=== PATIENT | male | born 1965 | race Caucasian/White ===

== ENCOUNTER → 2024-09-04 | Outpatient (CLI) | payer OTHER ==
[~2024-09-04] MED LIST: ACETAMINOPHEN 325 MG TAB PO PRN; DIGO0.253 PO; ELIQ5TAB; ISOVUE-300 61% 100ML VIAL As Ordered ONE; LIDOCAINE 1% MDV 20ML VIAL As Ordered ONE; LISI40TA4; METO1TAB7; MIDAZOLAM INJ 2MG/2ML VIAL As Ordered ONE; NOXI1TAB PO; NS (Normal Saline) 0.9% 1,000 ML IV SCH; PERCOCET 5MG/325MG TAB PO PRN; ROSU10TA61; SPIR-10; fentaNYL 100 MCG/2 ML INJECTION As Ordered ONE
[2024-09-04 08:16] VITALS: TEMP 98.6
[2024-09-04] MEDS: LIDOCAINE 1% MDV 20ML VIAL SC ONE (09:44)
[2024-09-04] MEDS: MIDAZOLAM INJ 2MG/2ML VIAL IV PRN (09:46)
[2024-09-04] MEDS: fentaNYL 100 MCG/2 ML INJECTION IV PRN (09:46)
[2024-09-04] MEDS: ISOVUE-300 61% 100ML VIAL IV ONE (10:00)
[2024-09-04 10:15] VITALS: BP 179/97; O2SAT 100
== END ==
LOC: M IRPRO 07:43
PROVIDERS: ATTEND Internal Medicine Medical Oncology
DX: C25.2 Malignant neoplasm of tail of pancreas (principal); E83.110 Hereditary hemochromatosis
CPT/HCPCS: 48102; 77012; 88305; 99152; 99153; J2250; J3010; Q9967

== ENCOUNTER → 2024-10-06 | Outpatient (CLI) | payer OTHER ==
[~2024-10-06] MED LIST changes: -ACETAMINOPHEN 325 MG TAB PO PRN; -ISOVUE-300 61% 100ML VIAL As Ordered ONE; -LIDOCAINE 1% MDV 20ML VIAL As Ordered ONE; -MIDAZOLAM INJ 2MG/2ML VIAL As Ordered ONE; -NS (Normal Saline) 0.9% 1,000 ML IV SCH; -PERCOCET 5MG/325MG TAB PO PRN; -fentaNYL 100 MCG/2 ML INJECTION As Ordered ONE
== END ==
LOC: M PLARAD 08:49
PROVIDERS: ATTEND Internal Medicine Medical Oncology
DX: C25.9 Malignant neoplasm of pancreas, unspecified (principal)
CPT/HCPCS: 78815; A9552

== ENCOUNTER → 2024-10-15 | Outpatient (CLI) | payer OTHER ==
[~2024-10-15] MED LIST changes: +DULO30CA9 PO; +OXYC-517 PO
== END ==
LOC: M WHC 11:36
PROVIDERS: ATTEND Internal Medicine Medical Oncology
DX: N50.812 Left testicular pain (principal); I86.1 Scrotal varices; N43.3 Hydrocele, unspecified; N50.3 Cyst of epididymis

== ENCOUNTER → 2024-10-15 | Outpatient (CLI) | payer OTHER ==
[~2024-10-15] VITALS: Ht 177.8 cm; Wt 91.9 kg
[2024-10-15 11:09] VITALS: BP 170/103; O2SAT 99
== END ==
LOC: M PAL 10:28
PROVIDERS: ATTEND Physician Assistant
DX: Z51.5 Encounter for palliative care (principal); C25.9 Malignant neoplasm of pancreas, unspecified; R11.0 Nausea; R52 Pain, unspecified; Z79.1 Long term (current) use of non-steroidal anti-inflammatories (NSAID); Z79.01 Long term (current) use of anticoagulants; Z79.899 Other long term (current) drug therapy

== ENCOUNTER → 2024-10-19 | Outpatient (CLI) | payer OTHER ==
[~2024-10-19] VITALS: Ht 177.8 cm; Wt 88.8 kg
[2024-10-19 12:16] VITALS: BP 142/79; O2SAT 98
== END ==
LOC: M PAL 11:23
PROVIDERS: ATTEND Physician Assistant
DX: Z51.5 Encounter for palliative care (principal); C61 Malignant neoplasm of prostate; R52 Pain, unspecified; R11.0 Nausea; Z66 Do not resuscitate; Z79.01 Long term (current) use of anticoagulants; Z79.891 Long term (current) use of opiate analgesic; Z79.899 Other long term (current) drug therapy

== ENCOUNTER → 2024-10-26 | Outpatient (CLI) | payer OTHER ==
[~2024-10-26] MED LIST changes: +ONDA-282 PO; +PROHANCE 279.3MG/ML 15ML VIAL ONE; +PROHANCE 279.3MG/ML 5ML VIAL ONE
== END ==
LOC: M PLAIMG 14:40
PROVIDERS: ATTEND Internal Medicine Medical Oncology
DX: D75.839 Thrombocytosis, unspecified (principal); R93.7 Abnormal findings on diagnostic imaging of other parts of musculoskeletal system
CPT/HCPCS: 73220; A9576

== ENCOUNTER → 2024-10-28 | Outpatient (CLI) | payer OTHER ==
[~2024-10-28] MED LIST changes: +MORP1SOL5 PO; -PROHANCE 279.3MG/ML 15ML VIAL ONE; -PROHANCE 279.3MG/ML 5ML VIAL ONE; +SENN1TAB85 PO
== END ==
LOC: M IRPRO 09:17
PROVIDERS: ATTEND Internal Medicine Medical Oncology
DX: C25.9 Malignant neoplasm of pancreas, unspecified (principal)
CPT/HCPCS: 36569; 71045; C1751

== ENCOUNTER → 2024-10-30 | Outpatient (REF) | LOC: M LABCFH 10:04 | DX: K57.92 Diverticulitis of intestine, part unspecified, without perforation or abscess without bleeding (principal) ==

== ENCOUNTER → 2024-10-30 | Outpatient (CLI) | payer OTHER | LOC: M PAL 13:00 | PROVIDERS: ATTEND Family Medicine | DX: Z51.5 Encounter for palliative care (principal); Z66 Do not resuscitate; C25.9 Malignant neoplasm of pancreas, unspecified; C40.00 Malignant neoplasm of scapula and long bones of unspecified upper limb; K57.92 Diverticulitis of intestine, part unspecified, without perforation or abscess without bleeding; N17.9 Acute kidney failure, unspecified; Z79.891 Long term (current) use of opiate analgesic; Z79.899 Other long term (current) drug therapy ==

== ENCOUNTER 2024-11-09 07:26 | Inpatient (IN) | payer OTHER ==
[~2024-11-09] VITALS: Ht 177.8 cm; Wt 92.5 kg
[~2024-11-09 07:26] MED LIST changes: -CIPR-249 PO; -CIPR500S PO; -DOCU8.6T PO; -LIDOCAINE 1% MDV 20ML VIAL SC SCH; -METO1TAB33 PO; -METR-265 PO; -MIDAZOLAM INJ 2MG/2ML VIAL IV PRN; -NS (Normal Saline) 0.9% 1,000 ML IV SCH; -ROSU20TA86 PO; -ceFAZolin SODIUM 2 GM in DEXTROSE 5% (D5W) ADV/MINI-BAG 50 ML IV ONE; -fentaNYL 100 MCG/2 ML INJECTION IV PRN
[2024-11-09] MEDS ORDERED: NOREPINEPHRINE 4MG IN D5 250ML 4 MG in IV 1 EA IV SCH (07:35)
[2024-11-09 08:06] LABS: BASO % 0.3 % (0.0-1.0); EOS # 0.1 10^3/uL (0.0-0.5); EOS % 0.8 % (0.0-3.0); HEMATOCRIT 40.7 % (42.0-52.0); LYMPH # 0.8 10^3/uL (1.5-5.0); MEAN CORPUSCULAR HEMOGLOBIN 29.4 pg (27.0-33.0); MEAN CORPUSCULAR HGB CONC 34.4 g/dl (32.0-36.5); MEAN CORPUSCULAR VOLUME 85.3 fl (80.0-96.0); MONO # 1.5 10^3/uL (0.0-0.8); MONO % 10.9 % (2.0-8.0); NEUTROPHILS # 11.4 10^3/uL (1.5-8.5); PLATELET COUNT, AUTOMATED 433 10^3/uL (150-450); RED BLOOD COUNT 4.77 10^6/uL (4.30-6.10)
[2024-11-09 08:23] LABS: INR 1.55; PARTIAL THROMBOPLASTIN TIME 36.5 SECONDS (24.8-34.2); PROTHROMBIN TIME 18.9 SECONDS (12.5-14.5)
[2024-11-09] MEDS: NS 0.9% IV ONE (08:23)
[2024-11-09] MEDS: [UNRECOGNIZED DRUG - OTHER] IV ONE (08:23)
[2024-11-09] MEDS: fentaNYL 100 MCG/2 ML INJECTION IV PRN (08:24)
[2024-11-09] MEDS: PIPERACILLIN/TAZOBACTAM SOD 4.5 GM in DEXTROSE 5% (D5W) ADV/MINI-BAG 50 ML IV ONE (08:24)
[2024-11-09] MEDS: LIDOCAINE 2% 5ML JELLY UROJET TOP ONE ×2 (08:25)
[2024-11-09 08:27] LABS: CK-MB VALUE MASS 1.3 NG/ML (<3.6)
[2024-11-09 08:28] LABS: APPEARANCE, URINE CLOUDY (CLEAR); BACTERIA, URINE AUTO NEGATIVE (NEGATIVE); BILIRUBIN, URINE AUTO 1+ (NEGATIVE); BLOOD, URINE BLOOD NEGATIVE (NEGATIVE); COLOR, URINE AMBER (YELLOW); GLUCOSE, URINE (UA) AUTO NEGATIVE (NEGATIVE); KETONE, URINE AUTO NEGATIVE (NEGATIVE); LEUKOCYTE ESTERASE, URINE AUTO 1+ (NEGATIVE); MUCUS, URINE SMALL (NEGATIVE); NITRITE, URINE AUTO NEGATIVE (NEGATIVE); PROTEIN, URINE AUTO 2+ mg/dL (NEGATIVE); RBC, URINE AUTO 4 /HPF (0-3); SPECIFIC GRAVITY URINE AUTO 1.019 (1.002-1.035); SQUAMOUS EPITHELIAL CELL UR AU 2 /HPF (0-6); WBC, URINE AUTO 29 /HPF (0-3)
[2024-11-09 08:29] LABS: MB/CK RELATIVE INDEX 1.25 (< OR =4)
[2024-11-09 08:33] LABS: DIGOXIN LEVEL 1.5 NG/ML (0.8-2.0)
[2024-11-09 08:53] LABS: PROCALCITONIN 1.08 ng/ml
[2024-11-09 08:55] LABS: ALBUMIN 3.1 G/DL (3.2-5.2); BILIRUBIN,DIRECT 0.1 MG/DL (<0.4); BILIRUBIN,TOTAL 0.3 MG/DL (0.3-1.2); C REACTIVE PROTEIN QUANTITATIV 17.85 MG/DL (<1.0); CALCIUM LEVEL 8.7 MG/DL (8.3-10.6); CREATININE FOR GFR 4.52 MG/DL (0.70-1.30); GLOMERULAR FILTRATION RATE 14.1 (>49); POTASSIUM SERUM 5.3 MMOL/L (3.5-5.1); TOTAL PROTEIN 6.3 G/DL (5.7-8.2)
[2024-11-09 09:05] LABS: ABG BASE EXCESS -9.6 (-2.0-2.0); ABG HCO3 14.2 MMOL/L (22.0-26.0); ABG O2 SATURATION 98.4 % (95.0-99.0); ABG PARTIAL PRESSURE CO2 26.1 mmHg (35.0-45.0); ABG PARTIAL PRESSURE O2 144.9 mmHg (75.0-100.0); ABG STANDARD HCO3 16.9 MMOL/L. (22.0-26.0); ABG pH (ARTERIAL) 7.352 UNITS (7.350-7.450)
[2024-11-09 09:27] LABS: FREE T4 1.29 NG/DL (0.89-1.76); THYROID STIMULATING HORMONE 12.207 uIU/ML (0.55-4.78)
[2024-11-09] MEDS: ONDANSETRON 4MG 2ML VIAL IV ONE (09:38)
[2024-11-09 09:55] LABS: CK-MB VALUE MASS 1.1 NG/ML (<3.6)
[2024-11-09 09:55] LABS: CREATININE,RANDOM URINE 302.2 MG/DL
[2024-11-09 09:57] LABS: MB/CK RELATIVE INDEX 1.32 (< OR =4)
[2024-11-09] MEDS ORDERED: DOCU8.6T PO (10:22)
[2024-11-09] MEDS ORDERED: METO1TAB33 PO (10:22)
[2024-11-09] MEDS ORDERED: ONDA-282 PO (10:22)
[2024-11-09] MEDS ORDERED: ROSU20TA86 PO (10:22)
[2024-11-09] MEDS ORDERED: CIPR500S PO (10:24)
[2024-11-09] MEDS ORDERED: CIPR-249 PO (10:24)
[2024-11-09] MEDS ORDERED: METR-265 PO (10:25)
[2024-11-09] MEDS ORDERED: HOME MED LIST COMPLETE! XX SCH (10:30)
[2024-11-09] MEDS: NS (Normal Saline) 0.9% 1,000 ML IV ONE (10:36)
[2024-11-09] MEDS: fentaNYL 100 MCG/2 ML INJECTION IV ONE (11:32)
[2024-11-09 15:11] VITALS: BP 102/60; TEMP 98.3; O2SAT 94; O2SAT 95
[2024-11-09 16:18] LABS: CALCIUM LEVEL 7.8 MG/DL (8.3-10.6); CREATININE FOR GFR 3.97 MG/DL (0.70-1.30); GLOMERULAR FILTRATION RATE 16.5 (>49); POTASSIUM SERUM 5.4 MMOL/L (3.5-5.1)
[2024-11-09 17:38] LABS: APPEARANCE, BODY FLUID CLOUDY (CLEAR); ASCITES FL COLOR AMBER (COLORLESS); SOURCE, BODY FLUID ASCITES
[2024-11-09] MEDS: SODIUM BICARBONATE 150 MEQ in D5W 1,000 ML IV SCH (17:45)
[2024-11-09 18:42] LABS: SOURCE, BODY FLUID ALBUMIN ASCITES
[2024-11-09 18:47] LABS: SOURCE, BODY FLUID GLUCOSE ASCITES; SOURCE, BODY FLUID TOT PROTEIN ASCITES; TOTAL PROTEIN, BODY FLUID 4.3 G/DL (NOT ESTABLISHED)
[2024-11-09 19:53] VITALS: BP 106/62; TEMP 97.6; O2SAT 100
[2024-11-09] MEDS: PIPERACILLIN/TAZOBACTAM SOD 4.5 GM in DEXTROSE 5% (D5W) ADV/MINI-BAG 50 ML IV SCH (20:34)
[2024-11-09] MEDS: SENOKOT S TAB PO SCH (20:34)
[2024-11-09] MEDS: APIXABAN 5 MG TAB PO SCH (20:35)
[2024-11-09] MEDS: HYDROMORPHONE HCL 0.5 MG/ 0.5 ML SYRINGE IV PRN (20:37)
[2024-11-09 21:51] LABS: CALCIUM LEVEL 7.8 MG/DL (8.3-10.6); CREATININE FOR GFR 3.69 MG/DL (0.70-1.30); POTASSIUM SERUM 5.3 MMOL/L (3.5-5.1)
[2024-11-09 23:43] VITALS: BP 106/56; TEMP 97.5; O2SAT 100
[2024-11-10] VITALS (8 sets, daily range): BP systolic 80–103; BP diastolic 60–73; TEMP 96.8–97.9; O2SAT 95–99
[2024-11-10 06:29] LABS: ALBUMIN 2.2 G/DL (3.2-5.2); BILIRUBIN,TOTAL 0.2 MG/DL (0.3-1.2); CALCIUM LEVEL 7.8 MG/DL (8.3-10.6); CREATININE FOR GFR 3.46 MG/DL (0.70-1.30); GLOMERULAR FILTRATION RATE 19.4 (>49); POTASSIUM SERUM 4.5 MMOL/L (3.5-5.1); TOTAL PROTEIN 4.8 G/DL (5.7-8.2)
[2024-11-10] MEDS: ROSUVASTATIN 10 MG TAB PO SCH (08:22)
[2024-11-10] MEDS: HYDROMORPHONE HCL 0.5 MG/ 0.5 ML SYRINGE IV PRN (08:32)
[2024-11-10] MEDS: ONDANSETRON 4MG 2ML VIAL IV PRN (08:44)
[2024-11-10] MEDS ORDERED: AMIODARONE HCL 150 MG in IV 1 EA IV SCH (16:15)
[2024-11-10] MEDS ORDERED: AMIODARONE HCL 360 MG in IV 1 EA IV SCH (16:15)
[2024-11-10] MEDS: AMIODARONE 200 MG TAB PO SCH (17:15)
[2024-11-10 17:31] LABS: CALCIUM LEVEL 7.8 MG/DL (8.3-10.6); CREATININE FOR GFR 2.93 MG/DL (0.70-1.30); GLOMERULAR FILTRATION RATE 23.7 (>49); MAGNESIUM LEVEL 1.9 MG/DL (1.8-2.4); POTASSIUM SERUM 4.2 MMOL/L (3.5-5.1)
[2024-11-10] MEDS: MAG SULF 1GM/100ML (MAG RUN) 1 GM in IV 1 EA IV ONE (18:36)
[2024-11-10] MEDS ORDERED: AMIODARONE 200 MG TAB PO SCH (21:00)
[2024-11-11] VITALS (9 sets, daily range): BP systolic 94–114; BP diastolic 59–74; PULSE 87; TEMP 96.9–97.7; O2SAT 96–97
[2024-11-11 05:41] LABS: BASO % 0.3 % (0.0-1.0); EOS # 0.1 10^3/uL (0.0-0.5); EOS % 1.1 % (0.0-3.0); HEMATOCRIT 39.8 % (42.0-52.0); HEMOGLOBIN 13.6 g/dl (13.5-17.5); LYMPH # 0.8 10^3/uL (1.5-5.0); LYMPH % 6.5 % (24.0-44.0); MEAN CORPUSCULAR HEMOGLOBIN 28.3 pg (27.0-33.0); MEAN CORPUSCULAR HGB CONC 34.2 g/dl (32.0-36.5); MEAN CORPUSCULAR VOLUME 82.7 fl (80.0-96.0); MONO # 1.4 10^3/uL (0.0-0.8); MONO % 11.8 % (2.0-8.0); NEUTROPHILS # 9.5 10^3/uL (1.5-8.5); NEUTROPHILS % 79.7 % (36.0-66.0); PLATELET COUNT, AUTOMATED 386 10^3/uL (150-450); RED BLOOD COUNT 4.81 10^6/uL (4.30-6.10); WHITE BLOOD COUNT 11.9 10^3/uL (4.0-10.0)
[2024-11-11 06:10] LABS: CALCIUM LEVEL 7.8 MG/DL (8.3-10.6); CREATININE FOR GFR 2.64 MG/DL (0.70-1.30); GLOMERULAR FILTRATION RATE 26.9 (>49); POTASSIUM SERUM 4.5 MMOL/L (3.5-5.1)
[2024-11-11] MEDS ORDERED: DOCUSATE SODIUM 100MG CAPSULE PO PRN (07:05)
[2024-11-11] MEDS: MIRALAX *UNIT DOSE* 17GM PACKET PO PRN (08:44)
[2024-11-11] MEDS ORDERED: SIMETHICONE 80MG CHEW TAB PO PRN (09:10)
[2024-11-11] MEDS: NS (Normal Saline) 0.9% 1,000 ML IV SCH (09:41)
[2024-11-11 12:06] LABS: PROCALCITONIN 0.61 ng/ml
[2024-11-11] MEDS: PIPERACILLIN/TAZOBACTAM SOD 4.5 GM in DEXTROSE 5% (D5W) ADV/MINI-BAG 50 ML IV SCH (16:38)
[2024-11-11] MEDS ORDERED: guaiFENesin SYRUP 200MG 10ML UDC PO PRN (21:25)
[2024-11-11] MEDS ORDERED: methocarbamoL 750 MG TAB PO ONE (21:25)
[2024-11-11] MEDS: ALPRAZolam 0.5 MG TAB PO ONE (23:11)
[2024-11-12 04:23] VITALS: BP 98/65; TEMP 97.5; O2SAT 96
[2024-11-12 05:26] LABS: BASO % 0.3 % (0.0-1.0); EOS # 0.1 10^3/uL (0.0-0.5); EOS % 1.3 % (0.0-3.0); HEMATOCRIT 38.9 % (42.0-52.0); HEMOGLOBIN 13.1 g/dl (13.5-17.5); LYMPH # 0.9 10^3/uL (1.5-5.0); LYMPH % 9.2 % (24.0-44.0); MEAN CORPUSCULAR HEMOGLOBIN 28.2 pg (27.0-33.0); MEAN CORPUSCULAR HGB CONC 33.7 g/dl (32.0-36.5); MEAN CORPUSCULAR VOLUME 83.8 fl (80.0-96.0); MONO # 1.4 10^3/uL (0.0-0.8); MONO % 14.7 % (2.0-8.0); NEUTROPHILS % 73.8 % (36.0-66.0); PLATELET COUNT, AUTOMATED 336 10^3/uL (150-450); RED BLOOD COUNT 4.64 10^6/uL (4.30-6.10); WHITE BLOOD COUNT 9.5 10^3/uL (4.0-10.0)
[2024-11-12 05:46] LABS: CALCIUM LEVEL 7.9 MG/DL (8.3-10.6); CREATININE FOR GFR 2.5 MG/DL (0.70-1.30); GLOMERULAR FILTRATION RATE 28.7 (>49); PHOSPHORUS LEVEL 4.2 MG/DL (2.4-5.1); POTASSIUM SERUM 4.3 MMOL/L (3.5-5.1)
[2024-11-12 08:00] VITALS: BP 99/64; TEMP 98.1; O2SAT 97
[2024-11-12 12:00] VITALS: BP 103/66; TEMP 97.6; O2SAT 96
[2024-11-12 16:00] VITALS: BP 109/77; TEMP 97.9; O2SAT 95
[2024-11-12 20:18] VITALS: BP 110/76; TEMP 98.2; O2SAT 97
[2024-11-12] MEDS: ALPRAZolam 0.5 MG TAB PO SCH (20:18)
[2024-11-13] VITALS (12 sets, daily range): BP systolic 114–140; BP diastolic 68–88; PULSE 100–140; TEMP 97.1–98.4; O2SAT 94–98
[2024-11-13 05:33] LABS: BASO % 0.3 % (0.0-1.0); EOS # 0.1 10^3/uL (0.0-0.5); EOS % 1.1 % (0.0-3.0); HEMATOCRIT 36.7 % (42.0-52.0); HEMOGLOBIN 12.3 g/dl (13.5-17.5); LYMPH # 0.7 10^3/uL (1.5-5.0); LYMPH % 6.5 % (24.0-44.0); MEAN CORPUSCULAR HGB CONC 33.5 g/dl (32.0-36.5); MEAN CORPUSCULAR VOLUME 86.6 fl (80.0-96.0); MONO # 1.4 10^3/uL (0.0-0.8); MONO % 14.3 % (2.0-8.0); NEUTROPHILS # 7.8 10^3/uL (1.5-8.5); PLATELET COUNT, AUTOMATED 322 10^3/uL (150-450); RED BLOOD COUNT 4.24 10^6/uL (4.30-6.10); WHITE BLOOD COUNT 10.1 10^3/uL (4.0-10.0)
[2024-11-13 05:55] LABS: CALCIUM LEVEL 7.8 MG/DL (8.3-10.6); CREATININE FOR GFR 2.34 MG/DL (0.70-1.30); GLOMERULAR FILTRATION RATE 31.1 (>49); MAGNESIUM LEVEL 1.8 MG/DL (1.8-2.4); PHOSPHORUS LEVEL 3.5 MG/DL (2.4-5.1); POTASSIUM SERUM 4.1 MMOL/L (3.5-5.1)
[2024-11-13] MEDS: AMIODARONE HCL 150 MG in IV 1 EA IV ONE (09:59)
[2024-11-13] MEDS: AMIODARONE HCL 360 MG in IV 1 EA IV SCH (18:57)
[2024-11-14] VITALS (9 sets, daily range): BP systolic 121–158; BP diastolic 77–94; PULSE 94; TEMP 96.8–98.1; O2SAT 95–100
[2024-11-14 05:00] LABS: CALCIUM LEVEL 7.8 MG/DL (8.3-10.6); CREATININE FOR GFR 2.27 MG/DL (0.70-1.30); GLOMERULAR FILTRATION RATE 32.2 (>49); MAGNESIUM LEVEL 1.8 MG/DL (1.8-2.4); PHOSPHORUS LEVEL 3.5 MG/DL (2.4-5.1); POTASSIUM SERUM 4.2 MMOL/L (3.5-5.1)
[2024-11-15 04:07] VITALS: BP 128/98; TEMP 98.5; O2SAT 94
[2024-11-15 06:34] LABS: CALCIUM LEVEL 7.7 MG/DL (8.3-10.6); CREATININE FOR GFR 1.81 MG/DL (0.70-1.30); GLOMERULAR FILTRATION RATE 42.3 (>49); MAGNESIUM LEVEL 1.6 MG/DL (1.8-2.4); PHOSPHORUS LEVEL 3.3 MG/DL (2.4-5.1); POTASSIUM SERUM 4.1 MMOL/L (3.5-5.1)
[2024-11-15 07:50] VITALS: BP 124/92; TEMP 97.9; O2SAT 94
[2024-11-15 12:00] VITALS: BP 146/90; TEMP 97.3; O2SAT 95
[2024-11-15 16:57] VITALS: BP 158/98; TEMP 97.7; O2SAT 97
[2024-11-15 21:08] VITALS: BP 138/89; TEMP 97.2; O2SAT 99
[2024-11-16 04:44] LABS: HEMATOCRIT 38.8 % (42.0-52.0); HEMOGLOBIN 12.5 g/dl (13.5-17.5)
[2024-11-16 05:11] VITALS: BP 131/73; TEMP 98.2; O2SAT 96
[2024-11-16 07:17] LABS: CALCIUM LEVEL 8.2 MG/DL (8.3-10.6); CREATININE FOR GFR 1.71 MG/DL (0.70-1.30); GLOMERULAR FILTRATION RATE 45.3 (>49); MAGNESIUM LEVEL 1.6 MG/DL (1.8-2.4); POTASSIUM SERUM 4.3 MMOL/L (3.5-5.1)
[2024-11-16 07:48] VITALS: BP 149/85; TEMP 97.2; O2SAT 97
[2024-11-16] MEDS ORDERED: ACETAMINOPHEN 650MG SUPP PR PRN (10:45)
[2024-11-16] MEDS ORDERED: LORazepam 1 MG TAB PO PRN (10:45)
[2024-11-16] MEDS ORDERED: BISACODYL 10MG SUPP PR PRN (10:45)
[2024-11-16] MEDS ORDERED: SCOPOLAMINE 1MG TRANSDERMAL PATCH TOP PRN (10:45)
[2024-11-16] MEDS ORDERED: FLEET ENEMA PR PRN (10:45)
[2024-11-16] MEDS ORDERED: MORPHINE 10MG/0.5ML ORAL CONCENTRATE SOLUTION U/D SL PRN ×2 (10:45→11:50)
[2024-11-16] MEDS ORDERED: methocarbamoL 500 MG TAB PO PRN (11:50)
[2024-11-16] MEDS: MORPHINE 10MG/0.5ML ORAL CONCENTRATE SOLUTION U/D SL SCH (13:37)
[2024-11-17] MEDS ORDERED: MORP1SOL5 PO (11:31)
[2024-11-17] MEDS ORDERED: BISA10SU PR (11:31)
[2024-11-17] MEDS ORDERED: ATIV1TAB7 PO (11:31)
[2024-11-17] MEDS ORDERED: ONDA-282 PO (11:31)
[2024-11-17] MEDS ORDERED: METH-1164 PO (11:31)
[2024-11-17] MEDS ORDERED: ALPR0.5T3 PO (11:31)
[2024-11-17] MEDS: NEOSPORIN OINT 0.9 GM PKT TOP ONE (12:56)
== END 2024-11-17 13:15 | disposition hospice, home (50) | DRG 720 ==
LOC: M ED 07:26 → M ED INP 13:22 → M PCU 15:10 → M MS5PR 11-16 18:21
PROVIDERS: ADMIT Internal Medicine; ATTEND Student in an Organized Health Care Education/Training Program
PROC: 0W9G3ZZ Drainage of Peritoneal Cavity, Percutaneous Approach (ICD-10-PCS; principal; 2024-11-09 15:00)
DX: A41.9 Sepsis, unspecified organism (principal); R18.0 Malignant ascites; E87.4 Mixed disorder of acid-base balance; N17.9 Acute kidney failure, unspecified; C79.51 Secondary malignant neoplasm of bone; C78.7 Secondary malignant neoplasm of liver and intrahepatic bile duct; K57.92 Diverticulitis of intestine, part unspecified, without perforation or abscess without bleeding; E87.20 Acidosis, unspecified; C25.9 Malignant neoplasm of pancreas, unspecified; I48.91 Unspecified atrial fibrillation; E87.1 Hypo-osmolality and hyponatremia; E86.0 Dehydration; Z66 Do not resuscitate; I12.9 Hypertensive chronic kidney disease with stage 1 through stage 4 chronic kidney disease, or unspecified chronic kidney disease; E78.5 Hyperlipidemia, unspecified; E83.119 Hemochromatosis, unspecified; Z79.01 Long term (current) use of anticoagulants; Z79.899 Other long term (current) drug therapy; Z91.013 Allergy to seafood; R31.0 Gross hematuria; N18.9 Chronic kidney disease, unspecified

== ENCOUNTER → 2024-11-09 | Outpatient (CLI) | payer OTHER ==
[~2024-11-09] MED LIST changes: +CIPR-249 PO; +CIPR500S PO; +DOCU8.6T PO; -ELIQ5TAB; +ELIQ5TAB PO; +LIDOCAINE 1% MDV 20ML VIAL SC SCH; -LISI40TA4; +LISI40TA4 PO; +METO1TAB33 PO; +METR-265 PO; +MIDAZOLAM INJ 2MG/2ML VIAL IV PRN; +NS (Normal Saline) 0.9% 1,000 ML IV SCH; +ROSU20TA86 PO; -SPIR-10; +SPIR-10 PO; +ceFAZolin SODIUM 2 GM in DEXTROSE 5% (D5W) ADV/MINI-BAG 50 ML IV ONE; +fentaNYL 100 MCG/2 ML INJECTION IV PRN
== END ==
LOC: M IRPRO 07:11
PROVIDERS: ATTEND Internal Medicine Medical Oncology
DX: C25.9 Malignant neoplasm of pancreas, unspecified (principal); Z53.9 Procedure and treatment not carried out, unspecified reason